=== PATIENT | male | born 1995 | race Caucasian/White ===

== ENCOUNTER 2022-01-17 23:29 | Emergency (ER) | payer MEDICAID ==
[~2022-01-17] VITALS: Ht 180.3 cm; Wt 100.0 kg
[~2022-01-17 23:29] MED LIST: DIVA-112 PO; RISP3TAB35 PO
[2022-01-18 00:12] LABS: COVID AG,FIA SOURCE NASAL SWAB
[2022-01-18] MEDS ORDERED: IBUPROFEN 600 MG TABLET PO ONE (01:00)
[2022-01-18 01:05] LABS: RAPID GROUP A STREP NEGATIVE (NEGATIVE)
[2022-01-18 01:19] LABS: INFLUENZA TYPE A NEGATIVE FOR TYPE A (NEGATIVE); INFLUENZA TYPE B NEGATIVE FOR TYPE B (NEGATIVE)
[2022-01-18] MEDS ORDERED: IBUP-2070 PO (02:03)
[2022-01-18] MEDS ORDERED: ACET-3385 PO (02:03)
[2022-01-18 02:10] VITALS: BP 105/32
== END 2022-01-18 02:20 | disposition home or self-care (01) ==
LOC: EMS 23:30
DX: R05.9 Cough, unspecified (principal); F20.9 Schizophrenia, unspecified; F17.210 Nicotine dependence, cigarettes, uncomplicated; F12.90 Cannabis use, unspecified, uncomplicated; F15.90 Other stimulant use, unspecified, uncomplicated; Z20.822 Contact with and (suspected) exposure to COVID-19
CPT/HCPCS: 71045; 87430; 87804; 93005; 99285